=== PATIENT | female | born 1970 | race Caucasian/White ===

== ENCOUNTER 2022-05-23 07:43 | Day surgery (SDC) | payer BC, SELFPAY ==
[2022-05-23] VITALS (23 sets, daily range): BP systolic 99–131; BP diastolic 76–92; PULSE 63–92; RESP 12–18; TEMP 36.1–36.6; O2SAT 92–99; BMI 29.3
[2022-05-23] MEDS: ACETAMINOPHEN 500 MG TABLET 1000 MG PO ×2 (08:17→19:28)
[2022-05-23] MEDS: CELECOXIB 200 MG CAPSULE PO ×2 (08:17→20:47)
[2022-05-23] MEDS: OXYCODONE (CR) 10 MG TAB.ER.12H PO (08:17)
[2022-05-23] MEDS: LACTATED RINGERS 1000 ML 1,000 ML 100 ML IV (08:18)
[2022-05-23] MEDS: SODIUM CHLORIDE 0.9 % (FLUSH) 10 ML SYRINGE IVF (08:20)
[2022-05-23] MEDS: fentaNYL 100 MCG/2 ML inj IVP (08:46)
[2022-05-23] MEDS: MIDAZOLAM HCL 1 MG/ML inj IVP (08:47)
--- NOTE | 2022-05-23 08:52 | SUR.PREOP ---
TIME?OUT:?0844 PT/adal bergeron RN/Dr. Carl MDA?VERIFICATION?OF?SURGICAL?SITE left knee,?PROCEDURE,?AND?CONSENT OBTAINED?PRIOR?TO?INVASIVE?PROCEDURE.
[2022-05-23] MEDS: CEFAZOLIN 2 GM INJ IVP (09:25)
[2022-05-23] MEDS: TRANEXAMIC ACID 100 MG/ML INJ 1000 MG IV (09:30)
--- NOTE | 2022-05-23 09:31 | W.PM.NB ---
Nerve Block Nerve Block Time Seen by Provider: 08:45 Type of block requested by surgeon for post-operative analgesia: adductor canal Side: left Time out performed: Yes Verification of patient name: Yes Verification of date of : Yes Site marking: site marked Name of person performing procedure: Carl Continuous monitoring Was continuous monitoring of O2 sat, B/P, allergist/immunologist physician, recorded every 15 minutes?: Yes Procedure Checklist: sterile prep, needles and gloves Ultrasound guided. Images saved: Yes Medications given in 5ml increments after negative aspiration: Ropivicaine %: 0.5 mL: 20 Needle gauge: 20 Decadron (mg): 10 Precedex (mcg): 25 Patient tolerated procedure well: Yes Additional comments: Needle noted adjacent to nerve Block Charges Block Charge (with Pro Fee): Femoral Nerve Use of Ultrasound Machine for Block: Yes- US Guidance/pain block
--- NOTE | 2022-05-23 09:32 | P.NB_ITS ---
Nerve Block Nerve Block Time Seen by Provider: 08:45 Date Seen: 05/23/22 Type of block requested by surgeon for post-operative analgesia: geniculars Side: left Time out performed: Yes Verification of patient name: Yes Verification of date of : Yes Site marking: site marked Name of person performing procedure: Carl Continuous monitoring Was continuous monitoring of O2 sat, B/P, director of cardiac rehabilitation, recorded every 15 minutes?: Yes Procedure Checklist: sterile prep, needles and gloves Medications given in 5ml increments after negative aspiration: Ropivicaine %: 0.5 mL: 9 Needle gauge: 25 Patient tolerated procedure well: Yes Block Charges Block Charge (with Pro Fee): Genicular Nerve Block Use of Ultrasound Machine for Block: No
--- NOTE | 2022-05-23 11:05 | CRLHL7_ITS ---
For Patients: As a result of the Cures Act, medical imaging exams and procedure reports are released immediately into your electronic medical record. You may view this report before your referring provider. If you have questions, please contact your health care provider. Indication: POST OP Left knee Technique: Two views left knee Findings/Impression: Hardware from a left total knee arthroplasty is in satisfactory position. Bone alignment is normal. No sign of acute fracture. Postop changes are within normal limits. Old fracture deformity of the distal femoral diaphysis noted. Old screw tracts in the proximal tibia. Dictated by Luis F Holbrook MD @ 05/23/2022 12:39:15 PM (Electronically Signed)
--- NOTE | 2022-05-23 11:07 | P.ORPRC_ITS ---
Procedure Note Date of procedure: 05/23/22 Procedure: SURGEON: Macario Brown MD PLASTIC WELDER: NEVAEH Friedman PREOPERATIVE DIAGNOSIS: Left knee osteoarthritis, retained hardware POSTOPERATIVE DIAGNOSIS: Left knee osteoarthritis, retained hardware NAME OF OPERATION: Left total knee arthroplasty, hardware removal deep ANESTHESIA: Spinal ESTIMATED BLOOD LOSS: 0 mL COMPLICATIONS: None SPECIMENS: None DRAINS: None PREOPERATIVE ANTIBIOTICS: Ancef 2 grams IMPLANTS: 1. J&J Attune # 5 narrow posterior stabilized femur 2. #4 fixed-bearing tibia 3. # 5 posterior stabilized, 5 mm fixed-bearing polyethylene 4. 38 patella INDICATIONS: The patient is a 51-year-old female with a longstanding history of severe, unrelenting left knee pain secondary to end-stage (grade IV) left knee osteoarthritis. Despite appropriate nonoperative management, including activity modification, anti-inflammatories, [id number] pain medication, bracing, physical therapy, and injections they continue to have pain and disability. Operative intervention was offered. The risks, benefits and expected outcomes were discussed in detail. These included but were not limited to: Infection, bleeding, injury to blood vessel or nerve, venous thromboembolism. All questions were answered to their satisfaction. Use of an assistant hall director was necessary throughout the case for patient positioning and safety, soft tissue retraction, and closure. PROCEDURE: Spinal anesthesia was administered. The patient was placed supine on the operating table. The assistant hall director made sure the patient was positioned appropriately. The lower extremity was prepped and draped in the usual sterile fashion. The limb was exsanguinated with the Richard bandage. The pneumatic tourniquet was inflated to 300 mmHg. A standard anterior incision was made with the knee in flexion. Subcutaneous dissection was sharply taken through fascial layer #1. Full-thickness medial and lateral flaps were elevated. The assistant hall director retracted the soft tissues and protected them throughout the case. A standard medial parapatellar approach was made. The patella was everted. The infrapatellar fat pad was preserved. The menisci and cruciate ligaments were sharply d?brided. Marginal osteophytes were d?brided with the rongeur. Staple on the lateral cortex of the femur was subperiosteally exposed. The crm analyst/extractor was screwed onto the staple and the slap hammer was used to remove it, intact. Likewise, the 2 hector on the medial side of the tibia were subperiosteally exposed and likewise crm analyst/extractor was screwed onto each staple and each one was tapped out, intact. The drill was used to penetrate the femoral canal. The canal was aspirated and irrigated with pulse lavage. The intramedullary femoral guide was placed. She has minimal apex anterior angulation from her previous femur fracture. Additionally, there was bone within the canal. Therefore, we were very careful to gently tap guide wilfrido in, keeping it along the anterior cortex. This was placed for a 5-degree valgus cut. It appeared that the guide was nicely aligned with the distal femur, not in flexion. The saw was used, removing 10 mm off the distal femur. Whitesides line and the trans epicondylar axis were marked. The femoral sizing guide was pinned onto the distal femur. Three degrees of external rotation nicely parallels the transepicondylar axis. Pins were placed for posterior referencing. The four-in-one cutting guide was pinned onto the distal femur. The anterior, posterior, and chamfer cuts were made. The assistant hall director protected the collateral ligaments. The box cutting guide was pinned. The box cuts were made. The boxed trial was placed and was an excellent fit. Drill holes for the lugs were made. Attention was then turned to the proximal tibia. The extramedullary tibial guide was placed for a neutral varus/valgus cut with 5 degrees of posterior slope, removing 2 mm based off the medial tibial surface. The assistant hall director protected the collateral ligaments and the neurovascular bundle. The saw was used to make the cut. Trial components were placed. The knee was nicely balanced in both flexion and extension. The trial components were removed. The tray was placed in appropriate rotation, parallel to our tibial cutting pins. It was pinned by the assistant hall director and the drill and the punch were used. The tray was removed. The punch was used again. We placed a bone plug in the femoral canal. Attention was then turned to the patella. [place] patellar thickness was 21.5 mm. The lobster claw resection guide was used with the 7.5 mm denzel. The saw was used to make the cut. Drill holes were made by the assistant hall director. The trial was placed and was an excellent fit. Cancellous surfaces were irrigated with pulse lavage and thoroughly dried by the assistant hall director. We cemented the tibial component, then the femoral component. A trial spacer was placed. The knee was brought into full extension. We then cemented the patellar component. Excessive cement was removed. The cement was allowed to harden. We impacted the 5 mm polyethylene onto the tibial tray. The knee was taken through a range of motion and was found to be nicely balanced in both flexion and extension. The patella tracks centrally. The assistant hall director did a three minute dilute Betadine solution soak. The assistant hall director irrigated the wound with 3 liters of normal saline via pulse lavage. The assistant hall director reapproximated the extensor mechanism with #1 Vicryl in an interrupted [id number] fashion. The assistant hall director then ran the extensor mechanism with a #1 PDO Stratafix. The assistant hall director closed the subcutaneous tissues with a 3-0 Stratafix and the skin with a running 3-0 Stratafix in a subcuticular fashion. Glue was used to seal the skin. The assistant hall director placed a dry dressing, KRISTIN stocking, and Polar Care. Sponge and needle counts were correct x2. The patient tolerated the procedure well. There were no apparent complications. They were carefully transferred to the hospital bed and taken to the postanesthesia care unit in satisfactory condition. PLAN: The patient will be mobilized with physical therapy. Aspirin will be used for DVT prophylaxis. They will be discharged to home once medically appropriate.
--- NOTE | 2022-05-23 11:56 | W.ANESCHARGE ---
Anesthesia Charges Start Date/Time Anesthesia Start Date: 05/23/22 Anesthesia Start Time: 09:16 Stop Date/Time Anesthesia Stop Date: 05/23/22 Anesthesia Stop Time: 11:55 Summary Emergency: No
--- NOTE | 2022-05-23 13:01 | W.ANESCHARGE ---
Anesthesia Charges Start Date/Time Anesthesia Start Date: 05/23/22 Anesthesia Start Time: 09:16 Stop Date/Time Anesthesia Stop Date: 05/23/22 Anesthesia Stop Time: 11:55 Summary Emergency: No
[2022-05-23] MEDS: HYDROmorphone 0.5 mg/0.5 ml inj IVP (13:03)
--- NOTE | 2022-05-23 14:02 | PC.NURSE ---
End of Shift Note: Patient arrived in her bed from PACU. Pain was 5/10 see MAR for pain medication given. Has tolerated a clear liquid tray will be advancing her diet. Is doing ankle pumps. VSS. will continue to monitor. at bedside.
[2022-05-23] MEDS: OXYCODONE 5 MG TABLET PO ×3 (15:31→23:29)
[2022-05-23] MEDS: CEFAZOLIN 2 GM in 0.9 % SODIUM CHLORIDE Mini-bag 100 ML IVPB ×2 (15:52→23:29)
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
[2022-05-23] MEDS: ONDANSETRON 2 MG/ML inj 4 MG IVP ×2 (17:16→20:46)
[2022-05-23] MEDS: SENNOSIDES 1 TAB TABLET 2 TAB PO (20:47)
[2022-05-23] MEDS: ATORVASTATIN 10 MG TABLET 20 MG PO (20:47)
[2022-05-23] MEDS: ASPIRIN 81 MG TABLET EC PO (20:47)
[2022-05-24 03:45] VITALS: BP 111/80; PULSE 94; RESP 18; TEMP 36.2; O2SAT 95
[2022-05-24] MEDS: ACETAMINOPHEN 500 MG TABLET 1000 MG PO ×2 (03:47→08:18)
[2022-05-24] MEDS: OXYCODONE 5 MG TABLET PO ×3 (03:47→11:58)
--- NOTE | 2022-05-24 05:35 | PC.NURSE ---
SHIFT NOTE : Pt A&O, afebrile, oxygen saturations >90% on RA, VSS. PRN Oxycodone and scheduled Tylenol given for pain with pt reporting relief. Surgical dressing is C/D/I, CMS intact. PRN Zofran given x1 for nausea with pt reporting relief, no emesis. Denies CP and SOB. Up 1 assist with a walker and tolerating well.
[2022-05-24 07:00] VITALS: BP 142/88; PULSE 90; RESP 20; TEMP 36.5; O2SAT 96
[2022-05-24 07:23] LABS: Basophils Absolute Auto 0.01 K/uL (0.00-0.30); Basophils Percent Auto 0.1 % (0.0-3.0); Eosinophils Absolute Auto 0.03 K/uL (0.00-0.50); Eosinophils Percent Auto 0.4 % (0.0-7.0); Hemoglobin* 12.1 gm/dL (12.0-16.0); Immature Granulocytes Abs Auto 0.02 K/uL (0.00-0.30); Lymphocytes Percent Auto 9.2 % (20-44); Mean Corpuscular HGB Conc 34 gm/dL (32-36); Mean Corpuscular Hemoglobin 30 pg (26-34); Mean Corpuscular Volume 89 fL (80-100); Monocytes Percent Auto 9.7 % (0.0-11.0); Neutrophils Percent Auto 80.3 % (42.0-72.0); Platelet Count* 209 K/uL (140-440); Red Blood Count 4.05 m/uL (4.00-5.20); White Blood Count* 7.62 K/uL (4.50-11.00)
[2022-05-24 07:29] LABS: Slide Review Reflex No
[2022-05-24 07:33] LABS: Sodium* 134 mmol/L (135-149)
[2022-05-24 07:35] LABS: INR 1.08 (0.91-1.10); Prothrombin Time 14.4 Seconds
[2022-05-24 07:36] LABS: Creatinine* 0.8 mg/dL (0.5-1.5); Est. Creatinine Clearance* 76.13; Estimated Glomerular Filt Rate 88 ml/min
[2022-05-24 07:37] LABS: Blood Urea Nitrogen* 17 mg/dL (7-30)
[2022-05-24] MEDS: CEFAZOLIN 2 GM in 0.9 % SODIUM CHLORIDE Mini-bag 100 ML IVPB (08:17)
[2022-05-24] MEDS: SENNOSIDES 1 TAB TABLET 2 TAB PO (08:20)
[2022-05-24] MEDS: CELECOXIB 200 MG CAPSULE PO (08:20)
[2022-05-24] MEDS: ASPIRIN 81 MG TABLET EC PO (08:21)
[2022-05-24] MEDS: buPROPion XL 150 MG TABLET 300 MG PO (08:21)
[2022-05-24] MEDS: ESCITALOPRAM 10 MG TABLET 20 MG PO (08:22)
--- NOTE | 2022-05-24 08:45 | PM.ORPN ---
Subjective Subjective Time Seen by Provider: 08:00 Date Seen: 05/24/22 Principal diagnosis: Status post left total knee arthroplasty Interval history: Janet is comfortable this morning in a recliner, having breakfast. She states she has significant left calf pain which is more significant than her left knee pain. She has a small area of discomfort over the anterior patella. After an ACL reconstruction in the past she had a pulmonary embolism. Ortho Exam Narrative Exam Narrative: Alert and oriented x3. Patient is in no acute distress. Converses without labored breathing. Hearing is grossly intact. Ambulates with a walker. Examination of the left knee shows a small effusion. Mild soft tissue edema about the left knee. Small amount of early bruising. Left Quads are functioning, not as strong as the right non operative leg. Significant left calf pain with palpation. No right calf pain. CMS is intact left lower extremity. Const Vital Signs, click to edit/add: Vital Signs - 24 hr 05/23/22 09:00 05/23/22 11:51 05/23/22 12:20 Temperature 97.4 F L Pulse Rate 74 66 70 Pulse Rate [Pulse Oximeter] Respiratory Rate 16 16 14 Blood Pressure 109/76 117/84 126/90 H Blood Pressure [Left Arm] Pulse Oximetry 96 95 93 Oxygen Delivery Method Nasal Cannula Room Air Room Air Oxygen Flow Rate 2 05/23/22 11:55 05/23/22 12:00 05/23/22 12:05 Temperature 97.3 F L Pulse Rate 66 75 71 Pulse Rate [Pulse Oximeter] Respiratory Rate 18 14 12 Blood Pressure 120/84 113/80 123/82 Blood Pressure [Left Arm] Pulse Oximetry 96 96 94 Oxygen Delivery Method Room Air Room Air Room Air Oxygen Flow Rate 2 05/23/22 12:10 05/23/22 12:15 05/23/22 12:24 Temperature 97.3 F L 97.4 F L Pulse Rate 65 70 67 Pulse Rate [Pulse Oximeter] Respiratory Rate 12 12 12 Blood Pressure 123/82 122/88 131/89 Blood Pressure [Left Arm] Pulse Oximetry 94 96 96 Oxygen Delivery Method Room Air Room Air Room Air Oxygen Flow Rate 05/23/22 13:09 05/23/22 13:00 05/23/22 13:15 Temperature 96.9 F L 97.0 F L 97.0 F L Pulse Rate 69 Pulse Rate [Pulse Oximeter] 63 76 Respiratory Rate 18 18 18 Blood Pressure Blood Pressure [Left Arm] 124/90 H 118/82 129/92 H Pulse Oximetry 93 97 Oxygen Delivery Method Room Air Room Air Room Air Oxygen Flow Rate 05/23/22 13:46 05/23/22 14:00 05/23/22 14:30 Temperature 97.8 F 97.9 F 97.9 F Pulse Rate Pulse Rate [Pulse Oximeter] 67 73 81 Respiratory Rate 16 18 18 Blood Pressure Blood Pressure [Left Arm] 106/78 116/80 116/79 Pulse Oximetry 94 92 97 Oxygen Delivery Method Room Air Room Air Room Air Oxygen Flow Rate 05/23/22 15:00 05/23/22 16:00 05/23/22 17:00 Temperature 97.2 F L 97.2 F L 97.5 F L Pulse Rate Pulse Rate [Pulse Oximeter] 80 92 82 Respiratory Rate 18 16 16 Blood Pressure Blood Pressure [Left Arm] 110/80 120/83 99/78 Pulse Oximetry 95 92 97 Oxygen Delivery Method Room Air Room Air Room Air Oxygen Flow Rate 05/23/22 18:00 05/23/22 19:00 05/23/22 23:00 Temperature 97.4 F L 97.1 F L Pulse Rate Pulse Rate [Pulse Oximeter] 83 88 86 Respiratory Rate 16 18 16 Blood Pressure Blood Pressure [Left Arm] 118/84 119/90 H Pulse Oximetry 97 96 Oxygen Delivery Method Room Air Room Air Oxygen Flow Rate 05/23/22 23:00 05/24/22 03:45 05/24/22 07:00 Temperature 97.3 F L 97.2 F L 97.7 F Pulse Rate Pulse Rate [Pulse Oximeter] 86 94 90 Respiratory Rate 16 18 20 Blood Pressure Blood Pressure [Left Arm] 122/83 111/80 142/88 H Pulse Oximetry 98 95 96 Oxygen Delivery Method Room Air Room Air Oxygen Flow Rate Documenting provider has reviewed patient's vital signs: yes Assessment and Plan Assessment and plan (1) Osteoarthritis of left knee: Status: Acute (2) Status post total left knee replacement: Problem details: 05/23/2022 Status: Acute Assessment and Plan: An ultrasound of the left lower extremity is ordered for today to rule out DVT left calf. Plan for discharge is today to home if they meet discharge criteria. DVT prophylaxis includes Eliquis twice daily per her family physician. She has a prescription for this., Jabari spenceings x1 month may remove for 1 hr per day, frequent ambulation Remove dressing in 1 week. Observe wound and phone Orthopedics with any questions or concerns Return to clinic in 1 week for a wound check Return to clinic in [address] Brown Minimize narcotic use. Wean off and discontinue soon as possible. Activities as tolerated. No strenuous activity. Outpatient physical therapy as scheduled. Ice and elevate the operative extremity. No restriction on ice. (3) Sprain of anterior cruciate ligament of left knee: Status: Acute (4) Hypertension: Status: Acute (5) Anxiety: Status: Acute (6) Depression: Status: Acute (7) Hyperlipidemia: Status: Acute
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
[2022-05-24 11:00] VITALS: BP 140/96; PULSE 84; RESP 20; TEMP 36.6; O2SAT 97
[2022-05-24] MEDS: polyethylene glycoL 3350 17 GM PACK PO (11:00)
--- NOTE | 2022-05-24 11:00 | CRLHL7_ITS ---
For Patients: As a result of the Century Cures Act, medical imaging exams and procedure reports are released immediately into your electronic medical record. You may view this report before your referring provider. If you have questions, please contact your health care provider. INDICATION: Left TKR yesterday, tender calf. COMPARISON: None. TECHNIQUE: A compression venous ultrasound exam was performed of the left lower extremity using curtis-scale imaging, color Doppler and spectral Doppler analysis. FINDINGS: Sonographic imaging of the left lower extremity demonstrates normal compressibility and color Doppler venous blood flow within the common femoral vein, deep femoral vein, and the proximal greater saphenous vein. Within the thigh, the femoral vein is patent and compressible. At a lower level, the popliteal, peroneal, and posterior tibial veins also show normal compressibility and color Doppler venous blood flow. Limited imaging of the contralateral groin demonstrates a normal spectral waveform and color Doppler venous blood flow within the right common femoral vein. IMPRESSION: Negative for acute DVT in the left lower extremity. Dictated by Ifrah Ribeiro MD @ 05/24/2022 12:42:36 PM (Electronically Signed)
[2022-05-24] MEDS: APIXABAN 5 MG TABLET 10 MG PO (11:53)
== END 2022-05-24 14:22 | disposition home or self-care (01) ==
LOC: OR 07:44 → MEDSURG 07:48
PROVIDERS: PCP Orthopaedic Surgery; Visit Provider Orthopaedic Surgery
PROC: (CPT 27447; principal; 2022-05-23 08:30)
DX: M17.12 Unilateral primary osteoarthritis, left knee (principal); Z47.2 Encounter for removal of internal fixation device; S83.512D Sprain of anterior cruciate ligament of left knee, subsequent encounter; I10 Essential (primary) hypertension; F41.9 Anxiety disorder, unspecified; F32.A Depression, unspecified; E78.5 Hyperlipidemia, unspecified; M79.662 Pain in left lower leg; Z86.711 Personal history of pulmonary embolism
CPT/HCPCS: 27447; 20680; 01402; 36415; 64447; 64454; 73560; 76942; 82565; 84132; 84295; 84520; 85025; 85610; 93971; 97110; 97116; 97161; 97165; 97530; A9270; C1776; J0690; J1100; J1170; J2250; J2405; J2704; J2795; J3010; J7120

== ENCOUNTER 2022-08-22 14:45 | Outpatient (RCR) | payer BC, SELFPAY | END 2022-08-30 08:15 | disposition home or self-care (01) | PROVIDERS: Visit Provider Orthopaedic Surgery | DX: M17.12 Unilateral primary osteoarthritis, left knee (principal); Z51.89 Encounter for other specified aftercare | CPT/HCPCS: 97016; 97032; 97110; 97112; 97140; 97161; 97530 ==

== ENCOUNTER 2024-10-28 10:24 | Outpatient (CLI) | payer OTHER, SELFPAY | END 2024-10-28 10:25 | disposition home or self-care (01) | LOC: AMB 10-29 10:00 | PROVIDERS: Visit Provider Emergency Medicine | DX: R45.851 Suicidal ideations (principal) | CPT/HCPCS: A0425; A0427 ==